=== PATIENT | male | born 1990 | race Caucasian/White ===

== ENCOUNTER 2022-10-14 20:06 | Emergency (ER) | payer MEDICAID ==
[2022-10-14] MEDS ORDERED: Ketorolac 30 MG/ML SDV IM ONE (21:04)
[2022-10-14 21:41] LABS: ESTIMATED GFR 103 mL/min (>60)
[2022-10-14 22:11] LABS: CORONAVIRUS COVID-19 NAA NEGATIVE (NEGATIVE)
== END 2022-10-14 22:42 | disposition home or self-care (01) ==
LOC: FB.ED 20:06
DX: S29.011A Strain of muscle and tendon of front wall of thorax, initial encounter (principal); J45.909 Unspecified asthma, uncomplicated; Z20.822 Contact with and (suspected) exposure to COVID-19
CPT/HCPCS: 0240U; 36415; 71046; 80053; 84484; 85025; 85379; 93005; 96372; 99285; J1885